=== PATIENT | female | born 1985 | race Hispanic/Latino ===

== ENCOUNTER 2018-05-26 18:34 | Emergency (ER) | payer BC ==
--- NOTE | 2018-05-26 19:47 | OBHP ---
Datetime: 05/26/2018 19:42 IP Adm Impression: , intrauterine ; No Active Labor IP Admit Plan: Observation/Evaluation; Discharge home Admit Comment, IP Provider: Patient is a 33-year-old 1 para 0 estimated gestational age 30 w eeks patient presents to the hospital complaining of vaginal moisture [address] ates she placed a pad and noticed some clear discharge. Patient denies uterine contractions or leakag e of fluid. Patient concerned about rupturing membranes. Past medical history ankylosing spondylitis hypothyroidism Medications Synthroid 75 g by mouth daily Note known drug allergies Social history denies alcohol tobacco use Review of systems patient denies headache chest pain shortness of breath palpitations nausea vomit ing diarrhea heat or cold on Thursday bruisability musculoskeletal or neurological complaints Vital signs stable afebrile Physical exam see notes Intrauterine vaginal discharge Sterile speculum exam performed no pooling noted Bedside sonogram MICK adequate Vertex presentation External monitor Patient cleared for discharge Pelvic Type - PN: Adequate Extremities - PN: Normal Abdomen - PN: Normal Back - PN: Normal Breast - PN: Not Done Lungs - PN: Normal Heart - PN: Normal Thyroid - PN: Normal Neurologic - PN: Normal HEENT - PN: Normal General - PN: Normal FHR - Baseline A Provider: 145 Comments, ACOG Physical Exam: Sterile speculum exam no pooling cervix long closed posterior scant va ginal discharge Gestation - Est Wks by US: 30.0 Pool Provider: Negative EGA AdmitDate IP: 30.5 Vital Signs Provider: Reviewed IP Chief Complaint: Suspected ruptured membranes NICHD Variability Prov Fetus A: Moderate 6-25bpm NICHD Accel Fetus A IP Provider: 15X15 Dilatation, Provider: 0 Effacement, Provider: 0 Station, Provider: 0 Genitourinary Exam: Normal DTRs - PN: Normal
[2018-05-27 01:40] VITALS: BP 115/66; PULSE 74
== END 2018-05-26 19:38 | disposition home or self-care (01) ==
LOC: H.EROB2 18:34
DX: O34.63 Maternal care for abnormality of vagina, third trimester (principal); N89.8 Other specified noninflammatory disorders of vagina; Z3A.30 30 weeks gestation of pregnancy

== ENCOUNTER 2018-07-06 10:02 | Inpatient (IN) | payer BC ==
[2018-07-06 10:21] VITALS: BMI 27.0
[2018-07-06] MEDS ORDERED: Betamethasone Soluspan 30 mg/5mL Inj Susp IM ONE ×2 (10:33→23:45)
[2018-07-06 12:12] LABS: BASO % 0.2 % (0.0-2.0); EOS % 0.4 % (0.0-4.0); HEMOGLOBIN 11.6 g/dL (12.0-16.0); LYMPH # 1.9 K/uL (1.0-4.3); LYMPH % 23.4 % (20.0-40.0); MEAN CORPUSCULAR HEMOGLOBIN 28.6 pg (27.0-31.0); MEAN PLATELET VOLUME 8.5 fl (7.2-11.7); MONO # 0.5 K/uL (0.0-0.8); NEUT # 5.5 K/uL (1.8-7.0); RBC 4.06 Mil/uL (3.80-5.20); RED CELL DISTRIBUTION WIDTH 14.1 % (11.5-14.5); WHITE BLOOD COUNT 7.9 K/uL (4.8-10.8)
--- NOTE | 2018-07-06 13:22 | OBHP ---
Datetime: 07/06/2018 10:00 IP Adm Impression: , intrauterine ; No Active Labor; Intact Membranes IP Chief Complaint Other: Sent from [facility] office IP Admit Plan: Admit to unit Admit Comment, IP Provider: HPI: Kimberly is a 33yo G1 who was sent to the hospital from Dr. Donovan 's office today for unplanned IOL due to worrisome findings on the growth scan today. She has been fo llowing with [facility] due to a hisotry of hypothyroidism as well as Ankylosing Spondylitis. Before today h er last US on 06/08 showed overall growth in the 37th percentile and a normal MICK. Today in clinic her MICK was found to be 2.9cm with a greatest vertical pocket of 2.9cm. The AC was also found to be at t he 2nd percentile. She was sent for betamethasone administration and then induction of labor. Current ly she has no complaints and reports normal movement with no LOF or vaginal bleeding. ROS: as above, otherwise negative PMH: Hypothyroidism currently on Synthroid, Ankylosing Spondylitis (diagnosed in the [place] by MRI and clinical syndrome, HLA-B27 negative), Eczema PSH: Denies Medications: Synthroid 75mcg, PNV Allergies: Naproxen (rash) Social: Lives in [place] with her , denies any drug, alcohol or tobacco use during the preg yudelka Objective Labs: GBS unknown, Hep B neg, HIV/RPR negative Assessment/Plan: 33yo G1 at 36.[address] Morales's office for medical induction of l abor secondary to IUGR and oligohydramnios. - Plan to give the first dose of steroids this morning and per Dr. Hein's recomendation the se cond dose will be 12 hours later - We will likely start IOL tomorrow morning with cervidil - Intermittent monitoring - Regular diet today Zoraida Madera MD OB Fellow OB Attending note. Pt seen with OB fellow. Agree with note. We spoke at length with Kimberly and her about Oligo at 36w. They undertsood. will give Steroids x 2 then IOL MAHNDO Abdomen - PN: Normal Lungs - PN: Normal Heart - PN: Normal HEENT - PN: Normal General - PN: Normal Presentation-Admit: Vertex IP Fetus A Comments: Periods of marked variability FHR - Baseline A Provider: 130 Gestation - Est Wks by US: 36.4 IP Hx Assessment: The History has been Reviewed and is Current EGA AdmitDate IP: 36.4 Vital Signs Provider: Reviewed; Within Normal Limits IP Indication for Induction: IUGR; Oligohydramnios IP Chief Complaint: Other NICHD Variability Prov Fetus A: Moderate 6-25bpm NICHD Accel Fetus A IP Provider: 15X15 FHR Category Provider Fetus A: Category I NICHD Decel Fetus A IP Provider: None
[2018-07-07] MEDS: Levothyroxine 75 MCG TAB PO SCH (07:23)
--- NOTE | 2018-07-07 10:11 | US ---
Date of service: 07/07/2018 PROCEDURE: OB Pelvic Ultrasound HISTORY: lie, placental location, MICK. The reason for this exam is the concern for the decreased appearance to the amniotic fluid volume on patient's preceding day before Ob ultrasound exam LMP: 36 weeks 5 days COMPARISON: None available. FINDINGS: UTERUS: Single intrauterine gestation. Heart rate: 117 bpm. age (Ultrasound estimated): Not specifically requested at this setting. Patient apparently evaluated at her Ob physician's office the day before this exam Lashawn-gestational hemorrhage: None appreciated Date of delivery (per LMP) : 07/30/2018 Uterus not measured or assessed CERVIX: Not measured or assessed RIGHT OVARY: Not visualized LEFT OVARY: Not visualized FREE FLUID: None. OTHER FINDINGS: presentation is vertex Amniotic fluid index is 6.9 cm -the amount of amniotic fluid appears lower than normal. The value is however nearing the lower limits of of a normal range offered on this exam which is 6.66-27.61 Anterior placenta. No previa IMPRESSION: Single intrauterine gestation with cardiac activity whose gestational age by LMP is 36 weeks 5 days with an estimated date of delivery of 07/30/2018 Vertex presentation. Anterior placenta. No previa Amniotic fluid index is 6.9 cm -visually this amount of amniotic fluid appears lower than normal. Please note the above - correlate clinically Comments: These were the specific parameters requested in this abbreviated exam requested stat status
--- NOTE | 2018-07-07 20:39 | OBPN ---
Datetime: 07/07/2018 20:36 IP Progress Plan: Induction Datetime: 07/07/2018 13:49 IP Progress Note Comment: Late Entry Pt admitted for induction 2ndary to oligo ivory 2.9 w/ iugr ac 2%. Pt requested f/u us today prior to proceeding w/ induction. o: us today humc ivory 6.9 I: 36.5wks P: findings of ob us today and yesterday d/w dr somers. he recommends delivery if pt refuses he recommends bpp and nst daily. pt and fob advised of dr somers's recommendation. pt advised that low ivory and ac in 2% is c/w placental insufficiency which may result in demised. pt and fob reques t speaking to dr somers before making any further decisisons. addendum Patient spoke with Dr. Somers and decided to proceed with induction. She understands the baby is risk for respiratory distress syndrome. Datetime: 07/06/2018 10:00 FHR - Baseline A Provider: 130 IP Fetus A Comments: Periods of marked variability Gestation - Est Wks by US: 36.4 Presentation-Admit: Vertex Vital Signs Provider: Reviewed; Within Normal Limits NICHD Accel Fetus A IP Provider: 15X15 FHR Category Provider Fetus A: Category I NICHD Variability Prov Fetus A: Moderate 6-25bpm NICHD Decel Fetus A IP Provider: None (Annotations: Data stored by CPN on behalf of user) Datetime: 05/26/2018 19:42 Pool Provider: Negative Dilatation, Provider: 0 Effacement, Provider: 0 Station, Provider: 0
--- NOTE | 2018-07-07 20:45 | OBPN ---
Datetime: 07/07/2018 20:36 IP Progress Impression Other: Oligo/IUGR Contraction Comments Provider: no FHR - Baseline A Provider: 120 Presentation-Admit: Vertex IP Progress Note Comment: i: 36.5wks p: cervidel placed. induction procedure d/w pt. Vital Signs Provider: Reviewed; Within Normal Limits NICHD Accel Fetus A IP Provider: 15X15 FHR Category Provider Fetus A: Category I NICHD Variability Prov Fetus A: Moderate 6-25bpm Dilatation, Provider: 0 Effacement, Provider: 20 Station, Provider: -3 NICHD Decel Fetus A IP Provider: None
[2018-07-08] MEDS: Levothyroxine 75 MCG TAB PO SCH (06:53)
[2018-07-09] MEDS: Lactated Ringer's 1,000 ML IV SCH ×4 (06:00→15:00)
[2018-07-09] MEDS: Levothyroxine 75 MCG TAB PO SCH (06:51)
[2018-07-09] MEDS ORDERED: Oxytocin 30 UNIT 30 UNITS/500 ML BAG IV ONE ×2 (13:00→13:04)
[2018-07-09] MEDS ORDERED: Lidocaine 1% MPF (30 ml) Inj ONE (16:37)
[2018-07-09] MEDS ORDERED: Lidocaine 2% MPF (5 ml) Inj ONE (16:38)
--- NOTE | 2018-07-09 17:12 | OBDS ---
DELIVERY PERSONNEL Nurse Resin Painter Certified: james Delivery Doctor: and Dr Florinda King Nurse: james Program Host: SHOBHA Hunter and chuy Summers Anesthesiologist: james Lemon Picker: james Resident: james MATERNAL INFORMATION Medications in Delivery: pitocin Placenta Cultured: No Provider Comments: Uncomplicated spontaneous vaginal delivery of a viable male with BW of and scores of 9 and 9 over an intact perineum. EBL- 300mls Patient tolerated the procedure well. LABOR SUMMARY EDC: 07/30/2018 00:00 No. Babies in Womb: 1 Attempted: No LABOR INFORMATION Reason for Induction: Intrauterine Growth Retardation; Oligohydramnios Onset of Labor: 07/09/2018 10:00 Complete Dilatation: 07/09/2018 16:35 Cervical Ripening Agents: Cervidil; Cytotec @ Oxytocin: Augmentation Group B Beta Strep: Negative Antibiotics # of Doses: 0 Antibiotics Time of Last Dose: 0 Steroids Given: Full Course; > 24 Hours before Delivery Reason Steroids Not Administered: Not Applicable MEMBRANES Membranes Rupture Method: Spontaneous Rupture of Membranes: 07/09/2018 14:30 Length of Rupture (hrs): 2.32 STAGES OF LABOR Stage 1 hrs: 6 Stage 1 min: 35 Stage 2 hrs: 0 Stage 2 min: 14 Stage 3 hrs: 0 Stage 3 min: 12 Total Time in Labor hrs: 7 Total Time in Labor min: 1 BABY A INFORMATION Infant Delivery Date/Time: 07/09/2018 16:49 Method of Delivery: Vaginal Born in Route : No : N/A Forceps: N/A Vacuum Extraction: N/A SHOULDER DYSTOCIA BABY A Infant Delivery Date/Time: 07/09/2018 16:49 PRESENTATION/POSITION BABY A Presentation: Cephalic Cephalic Presentation: Vertex Vertex Position: Right Occipital Anterior Breech Presentation: N/A PLACENTA INFORMATION BABY A Placenta Delivery Time : 07/09/2018 17:01 Placenta Method of Delivery: Spontaneous Placenta Status: Delivered SCORES BABY A Heart Rate 1 min: >100 bpm Resp Effort 1 min: Good Cry Reflex Irritability 1 min: Cough or Sneeze or Pulls Away Muscle Tone 1 min: Active Motion Color 1 min: Body Velarde, Extremities Blue SCORE 1 MIN: 9 Heart Rate 5 min: >100 bpm Resp Effort 5 min: Good Cry Reflex Irritability 5 min: Cough or Sneeze or Pulls Away Muscle Tone 5 min: Active Motion Color 5 min: Body Velarde, Extremities Blue SCORE 5 MIN: 9 INFORMATION BABY A Gestational Age at Delivery: 37.0 Gestational Status: Term Outcome : Liveborn Condition : Stable Sex: Male IDENTIFICATION/MEDS BABY A ID Band Number: [id number] CORD INFORMATION BABY A No. Cord Vessels: 3 Nuchal Cord : N/A Nuchal Cord Other: na True Knot: na Infant Cord pH Baby Arterial: na Cord pH Baby Venous: na Cord Blood Taken: Yes Banking/Donate Info: na Suction: None
--- NOTE | 2018-07-09 17:34 | OBPN ---
Datetime: 07/09/2018 15:08 IP Informed Consent Obtain: Induction of Labor IP Progress Plan: Induction FHR - Baseline A Provider: 120 Gestation - Est Wks by US: 37.0 IP Progress Note Comment: S: starting to feel contractions more regularly, contraction pattern is no t regular at this time O: last vaginal exam was this morning at 09:00 A/P: 33yo G1 at 37.0 admitted for IOL d/t FGR - Starting pitocin now that she has completed cervical ripening - Patient consented to labor in the tub Zoraida Madera MD OB Fellow Attending Note: Patient was evaluated with fellow. Patient was reporting of increasing pelvic cramps and discomfort. She denies any vaginal bleeding O: afebrile Heart: RRR Chest : CTA B/L Abd: Soft, NT, BS- present FHR: Baseline 130s, moderate variabilities, absents decels CHLOE- Q 4-7mins SVE: 4/60/-2 as per last exam, Vtx presentation Assessment: IUP at 37wks in labor s/p cervical ripening with cervidli and cytotec Irregular uterine contractions. Plan: -Augmentation of labor with Pitocin -Monitor for the progress of labor. Noy Vital Signs Provider: Reviewed; Within Normal Limits NICHD Accel Fetus A IP Provider: 15X15 FHR Category Provider Fetus A: Category I NICHD Variability Prov Fetus A: Moderate 6-25bpm NICHD Decel Fetus A IP Provider: None Datetime: 07/09/2018 09:11 IP Procedures: Sterile Vag Exam Contraction Comments Provider: Q3-4 min Presentation-Admit: Vertex Dilatation, Provider: 3 Effacement, Provider: 50 Station, Provider: -2
--- NOTE | 2018-07-09 17:36 | OBPN ---
Datetime: 07/09/2018 09:11 IP Progress Note Comment: S: Feeling regular contractions now every 3-4 minutes, moderately painful. Had a small amount of bloody show this morning. O: see exam section A/P: 33 yo G1 admitted 07/06 for steroid administration and IOL secondary to IUGR. Now >24 hours si nce last betamethasone administration. In latent labor. EFM appropriate. - Induction: now had 5 doses of cytotec and 1 cervidil, will plan to give one additional dose of c ytotec and then start pitocin if her contraction pattern permits - GBS unknown, now that she is 37 weeks she no longer needs empiric prophylaxis Zoraida Madera MD OB Fellow. Attending Note: I reviewed patient with fellow. Pt is having cervical ripening for inductin of labor for oligohydramnious Irregular Contractions. Plan: Continue with Cytotec X6 Monitor for the onset and progress of labor.
[2018-07-09] MEDS ORDERED: Benzocaine/Menthol SPRAY TOP PRN ×2 (17:51→22:01)
[2018-07-10] MEDS: Levothyroxine 75 MCG TAB PO SCH (06:17)
[2018-07-10 07:46] LABS: BASO % 0.2 % (0.0-2.0); EOS % 0.1 % (0.0-4.0); HEMOGLOBIN 11.4 g/dL (12.0-16.0); LYMPH # 2.3 K/uL (1.0-4.3); LYMPH % 16.7 % (20.0-40.0); MEAN CELL VOLUME 83.6 fl (81.0-99.0); MEAN CORPUSCULAR HEMOGLOBIN 28.6 pg (27.0-31.0); MEAN CORPUSCULAR HGB CONC 34.2 g/dL (33.0-37.0); MEAN PLATELET VOLUME 8.6 fl (7.2-11.7); MONO # 0.9 K/uL (0.0-0.8); MONO % 6.3 % (0.0-10.0); NEUT # 10.6 K/uL (1.8-7.0); NEUT % 76.7 % (50.0-75.0); RBC 3.99 Mil/uL (3.80-5.20); RED CELL DISTRIBUTION WIDTH 13.9 % (11.5-14.5); WHITE BLOOD COUNT 13.8 K/uL (4.8-10.8)
--- NOTE | 2018-07-10 11:17 | OBPPN ---
Datetime: 07/10/2018 11:14 PP Pain Prov: Within normal limits PP Nausea Prov: Denies PP Flatus Prov: Yes PP Breasts Prov: Normal PP Heart Prov: Normal PP Lungs Prov: Normal PP Abdomen/Uterus Prov: Normal PP Lochia Prov: Normal PP Vulva/Perineum Prov: Normal PP CVA Tenderness Prov: Normal PP Extremities Prov: Normal PP Comments Phys Exam Prov: Abd; Soft,NT, BS present UTerus- Firm No calf tenderness B/L PP Impression Prov: Normal progression PP Plan Prov: Continue present management PP Progress Note Prov: S/P , PPD#1 Clinically Stable. Plan: Continue care. Vital Signs Provider PP: Reviewed
[2018-07-11] MEDS: Levothyroxine 75 MCG TAB PO SCH (06:20)
--- NOTE | 2018-07-11 10:44 | OBPPN ---
Datetime: 07/11/2018 10:43 PP Pain Prov: Within normal limits PP Nausea Prov: Denies PP Flatus Prov: Yes PP Breasts Prov: Normal PP Heart Prov: Normal PP Lungs Prov: Normal PP Abdomen/Uterus Prov: Normal PP Lochia Prov: Normal PP Vulva/Perineum Prov: Normal PP CVA Tenderness Prov: Normal PP Extremities Prov: Normal PP Comments Phys Exam Prov: Fundus firm under umbilicsu PP Impression Prov: Normal progression PP Plan Prov: Continue present management; Discharge PP Progress Note Prov: Patient denies CP, no SOB, no N/V, tolerating PO diet, ambulating/voiding wel l, mild lochia, abdominal pain tolerable with meds A/P 1. Discharge patient home 2. Discharge instructions reviewed IP PP Procedures: None Vital Signs Provider PP: Reviewed; Within Normal Limits
--- NOTE | 2018-07-11 10:46 | OBDCSUM ---
Datetime: 07/11/2018 10:06 Discharged to, Provider: Home Follow up at, Provider: [facility] Disch Instr Activity: Normal activity Disch Instr Diet: Regular Discharge Instructions, Provider: Routine instructions given Discharge Diagnosis, Provider: Term Delivered Discharge Time: 07/11/2018 10:44 Follow up in weeks, Provider: 6 wks Disch Referrals: None Contraception discussed, Prov: Yes
[2018-07-11 21:24] VITALS: BP 114/59; PULSE 59; RESP 18; TEMP 98.4; O2SAT 99
== END 2018-07-11 16:15 | disposition home or self-care (01) | DRG 775 ==
LOC: H.EROB2 10:02 → H.L&D 10:31 → H.OB/GYN 07-09 20:30
PROVIDERS: ADMIT Obstetrics & Gynecology; ATTEND Obstetrics & Gynecology
PROC: 4A1HXCZ Monitoring of Products of Conception, Cardiac Rate, External Approach (ICD-10-PCS; 2018-07-06)
PROC: 10E0XZZ Delivery of Products of Conception, External Approach (ICD-10-PCS; principal; 2018-07-09)
PROC: 3E0P7VZ Introduction of Hormone into Female Reproductive, Via Natural or Artificial Opening (ICD-10-PCS; 2018-07-09)
DX: O41.03X0 Oligohydramnios, third trimester, not applicable or unspecified (principal); O36.5930 Maternal care for other known or suspected poor fetal growth, third trimester, not applicable or unspecified; O99.284 Endocrine, nutritional and metabolic diseases complicating childbirth; E03.9 Hypothyroidism, unspecified; Z37.0 Single live birth; M45.9 Ankylosing spondylitis of unspecified sites in spine; Z3A.37 37 weeks gestation of pregnancy